=== PATIENT | male | born 1990 | race African-American/Black ===

== ENCOUNTER 2018-01-30 13:03 | Emergency (ER) | payer OTHER ==
[~2018-01-30] VITALS: Ht 170.2 cm; Wt 86.2 kg
[2018-01-30] MEDS ORDERED: IBUPROFEN600 MG ORAL (13:42)
[2018-01-30] MEDS ORDERED: LIDOCAINE700 M1 TP (13:42)
[2018-01-30] MEDS ORDERED: ROBAXIN500 MG PO (13:42)
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
[2018-01-30] MEDS ORDERED: Methocarbamol 500mg tab ORAL ONE (13:45)
[2018-01-30] MEDS ORDERED: Ketorolac 30mg Inj IM ONE (13:45)
[2018-01-30 14:19] VITALS: BP 127/72
== END 2018-01-30 14:19 | disposition home or self-care (01) ==
LOC: EMR 14:15
DX: M62.830 Muscle spasm of back (principal); S16.1XXA Strain of muscle, fascia and tendon at neck level, initial encounter; X58.XXXA Exposure to other specified factors, initial encounter; Y92.9 Unspecified place or not applicable
CPT/HCPCS: 96372; 99283; J1885